=== PATIENT | male | born 1985 ===

== ENCOUNTER 2018-05-12 20:10 | Emergency (ER) | payer SELFPAY ==
[2018-05-12] MEDS ORDERED: Tdap Vaccine 0.5 ml Vial (10-64 yrs) IM ONE ×2 (21:44→22:37)
--- NOTE | 2018-05-12 21:50 | ED PDOC ---
Upper Extremity Pain/Injury Time Seen by Provider: 05/12/18 21:41 Chief Complaint (Nursing): Finger,Hand,&Wrist Chief Complaint (Provider): Right thumb laceration History Per: Patient History/Exam Limitations: no limitations Onset/Duration Of Symptoms: Mins (just prior to arrival) Additional Complaint(s): Darien Aguilar, a 32 year old male with no significant past medical history, presents to the ED with a right thumb laceration just prior to arrival. Patient states he was cutting tomatoes and he cut the tip of his thumb. He reports being left hand dominant with no other complaints. PMD: none Tetanus: Not UTD Past Medical History Reviewed: Historical Data, Nursing Documentation, Vital Signs Vital Signs: Last Vital Signs Temp 98.4 F 05/12/18 21:12 Pulse 82 05/12/18 21:12 Resp 18 05/12/18 21:12 BP 122/80 05/12/18 21:12 Pulse Ox 100 05/12/18 21:12 - Medical History PMH: No Chronic Diseases - Surgical History Other surgeries: rotator cuff repair to left shoulder - Family History Family History: States: Unknown Family Hx - Home Medications Home Medications: Ambulatory Orders Medication Instructions Recorded RX: Bacitracin Ointment 1 applic TOP BID #1 tube 05/12/18 [Bacitracin] - Allergies Allergies/Adverse Reactions: Allergies Allergy/AdvReac Type Severity Reaction Status Date / Time No Known Allergies Allergy Verified 05/12/18 21:11 Review of Systems ROS Statement: Except As Marked, All Systems Reviewed And Found Negative Musculoskeletal: Positive for: Other (right thumb laceration) Physical Exam - Reviewed Nursing Documentation Reviewed: Yes Vital Signs Reviewed: Yes - Physical Exam Comments: GENERAL APPEARANCE: Patient is awake, alert, oriented x 3, in no acute distress. SKIN: Warm, dry; (-) cyanosis. NECK: Supple CHEST AND RESPIRATORY: (-) rales, (-) rhonchi, (-) wheezes; breath sounds equal bilaterally. HEART AND CARDIOVASCULAR: (-) irregularity HAND: To the distal palmar aspect of right thumb (+) 1cm c-shaped superficial abrasion with no nail involvement (+) active bleeding (+) sensation and capillary refill intact, (+) full ROM all digits (-) tenderness, (-) swelling, (-) ecchymosis, (-) bony deformity, (-) distal neurovascular deficit. Wrist, hand: (-) tenderness with FROM. NEURO AND PSYCH: Mental status as above. Gait: steady. Speech: clear. - ECG O2 Sat by Pulse Oximetry: 100 (RA) Pulse Ox Interpretation: Normal Medical Decision Making Medical Decision Making: Time: 21:40 Initial Impression: finger laceration Initial Plan: --Tetanus 0.5 ml IM --Wound irrigated with normal saline and explored. No FB or deep structure in volvement prior to wound closure. 2229 Wound repair performed with Dermabond by Lurdes HENDERSON. Patient tolerated procedure well. Educated on adhesive wound care. 2319 On re-evaluation, patient reports improvement of symptoms. On exam, patient remains AAOx3, in no acute distress. Lungs clear to auscultation, cardiac RRR, repeat neuro exam shows no focal findings. Vitals stable. Educated on adhesive wound care. Lab/Diagnostic results d/w the patient in great detail. Diagnosis of finger laceration d/w the patient. Based on history, exam and diagnostic results, plan will be for outpatient follo w up with PMD/clinic. Patient instructed to follow-up with pmd / referral provided / the clinic in 1- 2 days without fail. Advised to take medication as prescribed. Return to the emergency room at any time for any new or worsening symptoms. Patient states he fully agrees with and understands discharge instructions. States that he agrees with the plan and disposition. Verbalized and repeated discharge instructions and plan. I have given the patient opportunity to ask any additional questions. Scribe Attestation: Documented by Leonarda Vazquez, acting as a scribe for Ashleigh Chatman PA-C. Provider Scribe Attestation: All medical record entries made by the Scribe were at my direction and per sonally dictated by me. I have reviewed the chart and agree that the record accurately reflects my personal performance of the history, physical exam, medical decision making, and the department course for this patient. I have also personally directed, reviewed, and agree with the discharge instructions and disposition. Disposition - Clinical Impression Clinical Impression: Finger laceration - Patient ED Disposition Is Patient to be Admitted: No Counseled Patient/Family Regarding: Studies Performed, Diagnosis, Need For Followup, Rx Given - Disposition Referrals: [facility] [Outside] Disposition: Routine/Home Disposition Time: 23:20 Condition: IMPROVED Additional Instructions: ONCE WOUND ADHESIVE FALLS OFF, CLEAN WOUND TWICE DAILY WITH WARM WATER AND SOAP AND APPLY ANTIBIOTIC OINTMENT PRESCRIBED UNTIL HEALED. The emergency medical care you received today was directed at your acute sym ptoms. If you were prescribed any medication, please fill it and take as directed. It may take several days for your symptoms to resolve. Return to the Emergency Department if your symptoms worsen, do not improve, or if you have any other problems. Please contact your doctor in 2 days for re-evaluation and follow up / or call one of the physicians/clinics you have been referred to that are listed on the Patient Visit Information form that is included in your discharge packet. Bring any paperwork you were given at discharge with you along with any medications you are taking to your follow up visit. Our treatment cannot replace ongoing medical care by a primary care provider (PCP) outside of the emergency department. Prescriptions: RX: Bacitracin Ointment [Bacitracin] 1 applic TOP BID #1 tube Instructions: Skin Abrasions, Laceration Repair With Glue (DC), Wound Care, Common Finger Injuries Forms: [employer] (Slovak) Print Language: THAI - POA Present On Arrival: None
[2018-05-13 01:18] VITALS: BP 122/80; PULSE 82; RESP 18; TEMP 98.4; O2SAT 100
== END 2018-05-13 | disposition home or self-care (01) ==
LOC: H.ER 20:10
DX: S61.011A Laceration without foreign body of right thumb without damage to nail, initial encounter (principal); W26.0XXA Contact with knife, initial encounter; Y92.89 Other specified places as the place of occurrence of the external cause